=== PATIENT | male | born 2005 | race Hispanic/Latino ===

== ENCOUNTER 2024-08-27 23:07 | Emergency (ER) | payer SELFPAY ==
[~2024-08-27] VITALS: Ht 167.6 cm; Wt 77.1 kg
[2024-08-27] MEDS: 0.9%NACL 1000ML 1,000 ML IV ONE (23:26)
[2024-08-27] MEDS ORDERED: 0.9%NACL 100ML 100 ML IV ONE (23:28)
[2024-08-27] MEDS: leveTIRACEtam 500 MG/5 ML SD V 1,000 MG in 0.9%NACL 100ML 100 ML IV SCH (23:28)
[2024-08-27 23:29] LABS: BASOPHILS # (AUTO) 0.04 K/uL (0.00-0.20); BASOPHILS % (AUTO) 0.3 % (0.0-5.0); EOSINOPHILS # (AUTO) 0.08 K/uL (0.00-0.70); EOSINOPHILS % (AUTO) 0.6 % (0.0-8.0); IMMATURE GRANULOCYTE ABSOLUTE 0.09 K/uL (0-1); LYMPHOCYTES # (AUTO) 3.4 K/uL (1.0-4.8); LYMPHOCYTES % (AUTO) 24.1 % (21.0-51.0); MEAN CORPUSCULAR HEMOGLOBIN 33.9 pg (27.0-33.0); MEAN CORPUSCULAR HGB CONC 35.8 g/dL (32.0-36.0); MEAN CORPUSCULAR VOLUME 94.5 fL (80-100); MONOCYTES % (AUTO) 6.9 % (3.0-13.0); NEUTROPHILS # (AUTO) 9.5 K/uL (1.8-7.7); NEUTROPHILS % (AUTO) 67.5 % (40.0-77.0); PLATELET COUNT (AUTO) 320 K/uL (130-400); RED BLOOD CELL COUNT(AUTO) 5.08 MIL/uL (4.50-6.20); RED CELL DISTRIBUTION WIDTH 12.5 % (11.0-15.5); WHITE BLOOD COUNT (AUTO) 14.1 K/uL (4.8-10.8)
[2024-08-27 23:40] LABS: CREATININE 1.1 mg/dL (0.5-1.3); POTASSIUM 3.4 mmol/L (3.5-5.1)
--- NOTE | 2024-08-28 00:02 | HMCIMG ---
CT HEAD/BRAIN W/O CONTRAST HISTORY: Seizure COMPARISON: None TECHNIQUE: Multiple sequential axial images of the head were obtained from the base of the skull through vertex. Patient was not given contrast through intravenous route. FINDINGS: The ventricles and extraventricular CSF spaces are nondilated for patient's age. There is no midline shift, mass effect or herniation. No acute intracranial bleed is seen. There are bilateral maxillary sinusitis with mucoperiosteal thickening. IMPRESSION: 1. No acute intracranial bleed is seen. CT was performed with one or more following dose reduction techniques: automated exposure control, adjustment of the mA and kv according to patient's size, or use of a iterative reconstruction technique.
[2024-08-28] MEDS ORDERED: LEVE1000 PO (00:08)
--- NOTE | 2024-08-28 00:08 | ERN ---
General Chief Complaint: Seizure Stated Complaint: SEIZURE Time Seen by MD: 23:12 History of Present Illness Initial Comments 18-year-old male presents for possible seizure. Patient reports that he was at home, he was not what happened but he thinks he may have had a seizure. EMS was called. According to EMS patient was postictal on their arrival. Unknown if tonic-clonic seizure, unknown downtime. Patient does report that he feels sore, his GCS 15, he does have bilateral lateral tongue biting. Denies any drug or alcohol abuse. He reports that this is a 2nd seizure in his life, he up in a few months ago from Xanax withdrawal. He denies any current Xanax or alcohol abuse or use. He is not on any antiepileptics. Mother came to the patient's bedside. She reports that the patient has had three seizures over the last 7-10 days. The patient was admitted to [facility] for seizures and was getting treatment but had AMA a few days ago. He denies any medical or surgical history. Allergies: Coded Allergies: No Known Allergies (Unverified Allergy, Unknown, 08/28/24) Home Meds Active Scripts Levetiracetam (Keppra) 1,000 Mg Tablet, 1 TAB PO BID for 30 Days, #60 TAB 0 Refills Prov:LOLA NEVILLE DO 08/28/24 Past Medical History Past Medical History: No Pertinent History Past Surgical History: None ROS Dictation CONSTITUTIONAL: Negative except for HPI HEAD/FACE: Negative except for HPI EENT: Negative except for HPI RESPIRATORY: Negative except for HPI GASTROINTESTINAL/ABDOMINAL: Negative except for HPI GENITOURINARY: Negative except for HPI MUSCULOSKELETAL: Negative except for HPI INTEGUMENTARY: Negative except for HPI NEUROLOGICAL/PSYCH: Negative except for HPI HEMATOLOGIC/LYMPHATIC: Negative except for HPI All Systems Negative, Except as noted above. 13 point review of systems assessed and all negative except for above. Physical Exam Physical Exam Dictation PHYSICAL EXAM: GENERAL: alert,, awake oriented x 3 HEENT: EOMI, Sclera non icteric, moist mucosa NECK: Supple, no JVD, trachea midline LUNGS: Clear breath sounds bilaterally. No wheezes HEART: Regular rate and rhythm. Normal S1 and S2, without murmurs ABD: Abdomen soft, nontender. Bowel sounds present EXT: No clubbing or cyanosis, NEURO: Alert and oriented to person, follows commands Results Laboratory and Microbiology Lab and Micro Result Laboratory Tests Test 08/27/24 23:24 White Blood Count 14.1 K/uL (4.8-10.8) H Red Blood Count 5.08 MIL/uL (4.50-6.20) Hemoglobin 17.2 g/dL (14.0-18.0) Hematocrit 48.0 % (42-54) Mean Corpuscular Volume 94.5 fL (80-100) Mean Corpuscular Hemoglobin 33.9 pg (27.0-33.0) H Mean Corpuscular Hemoglobin Concent 35.8 g/dL (32.0-36.0) Red Cell Distribution Width 12.5 % (11.0-15.5) Platelet Count 320 K/uL (130-400) Mean Platelet Volume 9.7 fL (7.5-10.5) Immature Granulocyte % (Auto) 0.6 % (0-1) Neutrophils (%) (Auto) 67.5 % (40.0-77.0) Lymphocytes (%) (Auto) 24.1 % (21.0-51.0) Monocytes (%) (Auto) 6.9 % (3.0-13.0) Eosinophils (%) (Auto) 0.6 % (0.0-8.0) Basophils (%) (Auto) 0.3 % (0.0-5.0) Neutrophils # (Auto) 9.5 K/uL (1.8-7.7) H Lymphocytes # (Auto) 3.4 K/uL (1.0-4.8) Monocytes # (Auto) 1.0 K/uL (0.1-1.0) Eosinophils # (Auto) 0.08 K/uL (0.00-0.70) Basophils # (Auto) 0.04 K/uL (0.00-0.20) Absolute Immature Granulocyte (auto 0.09 K/uL (0-1) Nucleated Red Blood Cells 0.0 % (0.0-0.19) Sodium Level 137 mmol/L (136-145) Potassium Level 3.4 mmol/L (3.5-5.1) L Chloride Level 103 mmol/L (101-111) Carbon Dioxide Level 21 mmol/L (21-32) Blood Urea Nitrogen 10 mg/dL (7-18) Creatinine 1.1 mg/dL (0.5-1.3) Glomerular Filtration Rate Calc 99 mL/min (>90) Random Glucose 114 mg/dL (70-105) H Total Calcium 9.2 mg/dL (8.5-10.1) MDM CC: Possible seizure Historian: Patient Limitations by social determinants: None Differential diagnosis: Seizure, altered mentation, head injury, brain tumor, trauma, alcohol abuse, metabolic problem, other. Vital signs stable, remained stable in the ER. Clinical exam patient was GCS 15, he was sleepy. He was lateral tongue biting c onsistent with a seizure. CBC shows leukocytosis [id number] no shift. No bands. Chemistry unremarkable. CT head without contrast per my interpretation shows no brain Here in the ER patient received 1 L normal saline, 1 g of Keppra. I discussed with the patient in his mother observation versus discharge. Since this is the 3rd seizure in the last 10 days, patient would likely benefit from a Neurology consultation. He reports he was recently at [facility]. We will transfer for further treatment and evaluation. ED Course Orders Procedure Category Date Status Time Cbc With Differential LAB 08/27/24 Complete 23:15 Ct Head/Brain W/O CT 08/27/24 Resulted Contrast 23:15 0.9%Nacl 1000ml (Ns PHA 08/27/24 Complete 1000ml) 23:30 Basic Metabolic Panel LAB 08/27/24 Complete 23:15 Levetiracetam 500 PHA 08/28/24 Complete Mg/5 M[address] S[address] V (Keppra 5 06:00 Current Medications Medications (Trade) Dose Ordered Sig/Izzy Route PRN Reason Start Time Stop Time Status Last Admin Dose Admin Levetiracetam 1000 mg/Sodium Chloride 100 ml @ 400 mls/hr Q8H6 IV 08/28/24 06:00 08/28/24 03:53 DC 08/27/24 23:28 Sodium Chloride 1,000 ml @ 125 mls/hr ONCE ONCE IV 08/27/24 23:30 08/28/24 03:53 DC 08/27/24 23:26 Vital Signs Date Time Temp Pulse Resp B/P (MAP) Pulse Ox O2 Delivery O2 Flow Rate FiO2 08/28/24 03:16 98.6 61 16 118/74 99 Room Air* 0 21 08/28/24 02:08 98.6 65 16 102/61 99 Room Air* 0 21 08/28/24 00:34 98.6 67 16 129/73 99 Room Air* 0 21 08/27/24 23:18 98.6 92 16 148/88 99 Room Air* 0 21 08/27/24 23:09 98.6 98 16 138/85 100 Room Air 0 08/27/24 23:08 98.6 98 16 138/85 100 Room Air* 0 21 DX & DISP Disposition: Transfer ([facility] [place]) Departure Impression: Primary Impression: Seizure Condition: Stable Scripts Levetiracetam (Keppra) 1,000 Mg Tablet 1 TAB PO BID for 30 Days, #60 TAB 0 Refills Prov: LOLA NEVILLE DO 08/28/24 LOLA NEVILLE DO Aug 28, 2024 00:08
[2024-08-28 03:16] VITALS: BP 118/74; PULSE 61; RESP 16; TEMP 98.6; O2SAT 99
== END 2024-08-28 03:53 | disposition short-term general hospital (02) ==
LOC: EDH 23:07
DX: R56.9 Unspecified convulsions (principal)
CPT/HCPCS: 99285; 96365; 70450; 80048; 85025; 36415; J1953; J7030